=== PATIENT | male | born 1970 | race Caucasian/White ===

== ENCOUNTER 2023-09-09 03:35 | Emergency (ER) | payer MEDICAID, OTHER ==
[~2023-09-09] VITALS: Ht 177.8 cm; Wt 77.4 kg
[2023-09-09 05:08] LABS: Basophils # (auto) 0 10 ^3/uL (0-0.2); Basophils % (auto) 0.5 % (0.0-2.0); Eosinophils # (auto) 0.3 10 ^3/uL (0-0.8); Eosinophils % (auto) 2.9 % (0.0-7.0); Hemoglobin 14.3 g/dL (13.5-17.5); Lymphocytes # (auto) 1.9 10 ^3/uL (0.4-5.4); Lymphocytes % (auto) 21.5 % (10.0-50.0); Mean Corpuscular Volume 88.3 fL (80.0-100.0); Monocytes # (auto) 0.5 10 ^3/uL (0-1.3); Monocytes % (auto) 5.9 % (0.0-12.0); Neutrophils # (auto) 6.1 10 ^3/uL (1.6-8.6); Neutrophils % (auto) 69.2 % (37.0-80.0); Red Blood Cells 4.76 10^6/uL (4.5-5.90); Red Cell Distribution Width 13.6 % (11.8-14.3); White Blood Cell 8.7 10^3/uL (4.4-10.8)
[2023-09-09 05:17] LABS: Chloride 110 mmol/L (98-107); Potassium 3.6 mmol/L (3.5-5.1); Sodium 143 mmol/L (136-145)
[2023-09-09 05:18] LABS: Anion Gap 4 (5-15); Calcium 9.3 mg/dL (8.5-10.1); Carbon Dioxide 29 mmol/L (20-30)
[2023-09-09 05:23] LABS: BUN/Creatinine Ratio 18.4 (10.0-20.0); Blood Alcohol < 3.0 mg/dL (<10); Blood Urea Nitrogen 18 mg/dL (9-23); Glucose 109 mg/dL (74-106)
[2023-09-09 05:25] LABS: Acetaminophen < 2.0 UG/ML (10.0-20.0)
[2023-09-09 05:29] LABS: Salicylate < 3.0 mg/dL (2.8-20.0)
[2023-09-09 05:30] VITALS: PULSE 89; RESP 18; O2SAT 98
[2023-09-09 07:52] LABS: Amphetamine Screen, Urine Pos (NEGATIVE); Barbiturate Scree,Urine Neg (NEGATIVE); Benzodiazephine Screen, Urine Neg (NEGATIVE); Cannabinoid Screen, Urine Neg (NEGATIVE); Cocaine Screen, Urine Neg (NEGATIVE); Opiate Scree,Urine Neg (NEGATIVE); Phencyclidine Screen, Urine Neg (NEGATIVE)
[2023-09-09] MEDS ORDERED: QUET50TA PO (09:44)
[2023-09-09] MEDS ORDERED: SERT25TA84 PO (09:44)
[2023-09-09 09:49] VITALS: BP 147/90; PULSE 72; RESP 18; TEMP 98; O2SAT 98
[2023-09-09] MEDS ORDERED: SERTRALINE HCL 50 MG TAB PO SCH (10:00)
[2023-09-09] MEDS ORDERED: QUEtiapine FUMARATE 25 MG TAB PO SCH (22:00)
== END 2023-09-09 10:18 | disposition home or self-care (01) ==
LOC: ER 03:35
DX: F31.9 Bipolar disorder, unspecified (principal); F15.10 Other stimulant abuse, uncomplicated
CPT/HCPCS: 36415; 80048; 80307; 80320; 80329; 85025